=== PATIENT | female | born 1970 | race Caucasian/White ===

== ENCOUNTER 2018-03-19 15:36 | Emergency (ER) | payer BC, OTHER ==
[2018-03-19 16:21] VITALS: BP 98/67
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
== END 2018-03-19 16:53 | disposition home or self-care (01) ==
LOC: UCCORT 15:36
DX: H66.91 Otitis media, unspecified, right ear (principal); J45.909 Unspecified asthma, uncomplicated; F32.9 Major depressive disorder, single episode, unspecified; Z88.0 Allergy status to penicillin
CPT/HCPCS: 99212; G0463

== ENCOUNTER 2018-11-20 15:35 | Emergency (ER) | payer OTHER ==
[2018-11-20 16:25] VITALS: BP 92/64
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
== END 2018-11-20 16:58 | disposition home or self-care (01) ==
LOC: UCCORT 15:35
DX: J32.9 Chronic sinusitis, unspecified (principal); Z88.0 Allergy status to penicillin
CPT/HCPCS: 99212; G0463

== ENCOUNTER 2019-03-17 15:43 | Emergency (ER) | payer OTHER ==
[2019-03-17 17:24] VITALS: BP 127/77
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
[2019-03-17 17:44] LABS: Influenza A Molecular NEGATIVE (Negative); Influenza B Molecular NEGATIVE (Negative)
== END 2019-03-17 18:10 | disposition home or self-care (01) ==
LOC: UCCORT 15:43
DX: J20.9 Acute bronchitis, unspecified (principal); E11.9 Type 2 diabetes mellitus without complications; Z91.018 Allergy to other foods; Z88.0 Allergy status to penicillin
CPT/HCPCS: 99211; G0463